=== PATIENT | female | born 1965 | race Caucasian/White ===

== ENCOUNTER 2017-10-15 21:05 | Observation (INO) ==
--- NOTE | 2017-10-15 21:28 | Emergency Department Note ---
Disposition Clinical Impression: Altered mental status Qualifiers: Altered mental status type: unspecified Qualified Code(s): R41.82 - Altered mental status, unspecified Disposition: Admitted As Inpatient Condition: Fair Referrals: Anders Sheikh MD [Primary Care Provider] - Forms: ED Satisfaction Letter Time of Disposition: 21:36 Altered Mental Status HPI - General Chief Complaint: ED Altered Mental Status Stated Complaint: confusion Time Seen by Provider: 10/15/17 21:26 Source: patient Limitations: altered mental status Nursing Notes Reviewed: Yes Vital Signs Reviewed: Yes - History of Present Illness HPI Narrative: 52-year-old female who was seen at an outside facility for confusion and altered mental status. The patient has been evaluated at [facility] in the past for possible strokes. She has had no fevers. The patient was sent for possible MRI. complaint: altered mental status, confusion Onset (ago): hour(s) Timing confirmed by: caregiver Consistency of Symptoms: waxing and waning Context: unknown Associated symptoms: Reports: denies other symptoms - Related Data Home Medications Medication Instructions Recorded Confirmed Aspirin Enteric Coated [Aspirin EC] 81 mg PO DAILY 02/20/15 02/20/15 Esomeprazole Magnesium [Nexium] 40 mg PO DAILY 02/20/15 02/20/15 Folic Acid [FA-8] 0.8 mg PO DAILY 02/20/15 02/20/15 Pregabalin [Lyrica] 150 mg PO TID 02/20/15 02/20/15 Rizatriptan Benzoate [Maxalt] 10 mg PO BID PRN 02/20/15 02/20/15 Simvastatin [Zocor] 40 mg PO DAILY 02/20/15 02/20/15 Previous Rx's Medication Instructions Recorded Oxybutynin [Ditropan] 5 mg PO TID PRN #50 tablet 09/10/15 Allergies Allergy/AdvReac Type Severity Reaction Status Date / Time ciprofloxacin Allergy Swelling Verified 05/13/17 16:37 of Lip/Tongue/Throat All systems ED: reviewed and negative except as stated. Constitutional: Denies: fever, chills, weakness, weight change Eyes: Denies: eye pain, eye discharge, vision change ENT ED: Denies: ear pain, throat pain, dental pain, hearing loss, epistaxis, congestion, dysphagia Cardiovascular: Denies: chest pain, palpitations, dyspnea on exertion, edema, syncope Respiratory: Denies: cough, dyspnea, wheezes, hemoptysis, stridor Gastrointestinal: Denies: abdominal pain, nausea, vomiting, diarrhea, constipation, hematemesis, melena, hematochezia Genitourinary: Denies: dysuria, frequency, hematuria, discharge Musculoskeletal: Denies: back pain, neck pain, arthralgia, myalgia Integumentary: Denies: rash, abrasion, lesions Neurological: Reports: confusion, other (Altered mental status). Denies: headache, weakness, numbness, paresthesias, abnormal gait, vertigo Psychiatric: Denies: anxiety, depression, suicidal thoughts, homicidal thoughts , auditory hallucinations, visual hallucinations Endocrine: Denies: fatigue Hematological/Lymphatic: Denies: easy bleeding, easy bruising Allergic/Immunologic: Denies: facial swelling, urticaria Past Medical History - Past Medical History Medical history: Reports: kidney stones, RA, TIA Surgical history: Reports: cholecystectomy, hysterectomy, knee replacement, DANAE/ BSO Psychiatric history: Reports: anxiety, depression GROCERY CASHIER history: Reports: no GROCERY CASHIER history - Social History Smoking Status: Never smoker Smokeless Tobacco Status: No Alcohol use: Reports: none Drug use: Reports: none Physical Exam - General Limitations: altered mental status General appearance: in no apparent distress - Head Head exam: atraumatic, normocephalic, normal inspection - Eye Eye exam: Present: normal appearance, PERRL, EOMI - ENT ENT exam: normal exam, normal oropharynx, mucous membranes moist - Neck Neck exam: Present: normal inspection, full ROM, trachea midline - Chest Chest inspection: Present: normal inspection, symmetric chest wall rise - Respiratory Respiratory exam: Present: normal lung sounds bilaterally - Cardiovascular Cardiovascular exam: Present: regular rate, normal rhythm, normal heart sounds - Abdominal Exam Abdominal exam: Present: soft, Non-Tender. Absent: tenderness, distention, guarding, rebound, rigidity - Extremities Exam Extremities exam: Present: normal inspection, full ROM. Absent: tenderness, pedal edema - Expanded Lower Extremity Exam Neurovascular/Tendon exam: Absent: motor deficit, sensory deficit, tendon deficit - Back Exam Back exam: Present: normal inspection, full ROM. Absent: tenderness - Neurological Exam Neurological exam: Present: alert, oriented X3 - Psychiatric Psychiatric exam: Present: normal affect, normal mood - Skin Skin exam: Present: warm, dry, intact, normal color Course - Reevaluation(s) Reevaluation #1: 52-year-old who comes from [facility] outside hospital with acute confusion. Workup there included negative CBC negative liver and ammonia levels. CT of the head was negative. Consultation with neurology they will see the patient in consult recommended admission to the hospitalist MRI MRA. Time: 21:34 - Consultations Consultation #1: Discussed with Dr. Matos, admit MRI Time: 21:32 Consultation #2: Discussed with , admit. Time: 21:52 Vital Signs Temperature 97.9 F 10/15/17 21:14 Pulse Rate 75 10/15/17 21:14 Respiratory Rate 18 10/15/17 21:14 Blood Pressure 121/71 10/15/17 21:14 O2 Sat by Pulse Oximetry 95 10/15/17 21:14 Temperature 97.9 F 10/15/17 21:14 Pulse Rate 75 10/15/17 21:14 Respiratory Rate 18 10/15/17 21:14 Blood Pressure 121/71 10/15/17 21:14 O2 Sat by Pulse Oximetry 95 10/15/17 21:14 Oxygen Delivery Oxygen Delivery Room Air TPA Checklist - LKW: 3-4.5 hrs Add. Warnings/Precautions Patient/family understanding: The patient/family members have been counseled and understood the risk, benefit , and alternatives of treatment.
[2017-10-15] MEDS ORDERED: Gadolinium Contrast Agent (WT Based) IV PRN (21:49)
[2017-10-15] MEDS ORDERED: Ondansetron 4 MG/2 ML VIAL IVP PRN (22:16)
[2017-10-15] MEDS ORDERED: Naloxone 0.4 MG/ML INJ IVP PRN (22:17)
[2017-10-15] MEDS ORDERED: Acetaminophen 325 MG TABLET PO PRN (22:17)
--- NOTE | 2017-10-15 22:21 | Internal Med History&Physical ---
Date of Encounter: 10/16/17 Time of Encounter: 22:18 Internal Medicine - H&P: HPI Chief complaint: Confusion Admitted From: Emergency Dept Plans for Post Hospital Care: Home History of present illness: Ms. Ugalde is a 52 year old female with history of migraines, TIAs, GERD who actually presented first to [facility] for confusion and was transferred to our ED for further evaluation before being admitted to us. The patient had presented to [facility] with complaints of sudden onset of confusion that started this morning. While talking to the patient in our ED she tells me that she woke up this morning as she was having a dream that she is going to [place] with her sister. She drove herself to her sister's workplace and asked her to go to [place] with her to see her uncle who actually lives there. Her sister's told her that she is not looking well and advised to go to the ED. The patient tells me that she has been feeling weak all day and is not able to hold onto things. While I was in the room I noted that the floor was wet and she told me that she could not hold her bottle of water and she ended up spilling the water on the floor. She tells me she has not been able to hold onto things all day. She was able to drive however. I started the patient up and walked her in the ER and she was able to walk however she was wobbly and took only small steps but she was able to hold her own. She had a workup at [facility] that including CT abdomen was unremarkable, EKG that was with no ST or T-wave changes, chest x-ray that showed cardiomegaly. Laboratory workup showed creatinine was 1.8 which is above her baseline and the rest of her labs were unremarkable including electrolytes. She had mildly elevated LFTs however those were elevated previously. The patient denies any other symptoms such as fever, chills, nausea , vomiting, headache, blurry vision, chest pain, shortness of breath, abdominal pain, urinary symptoms. Neurology were consulted in the ED and recommended admission for further neurological workup. Past Med Surg Social Fam HX - Past Medical History Medical history: kidney stones, RA, TIA Psychiatric history: anxiety, depression - Past Surgical History Surgical History: cholecystectomy, hysterectomy, knee replacement, DANAE/BSO - Social History Smoking Status: Never smoker Smokeless Tobacco Status: No Alcohol use: none Drug use: none Internal Medicine - H&P: Meds Aspirin Enteric Coated [Aspirin EC] 81 mg PO DAILY 02/20/15 [History] Simvastatin [Zocor] 40 mg PO DAILY 02/20/15 [History] Baclofen [Lioresal] 10 mg PO BID 10/15/17 [History] Duloxetine HCl [Cymbalta] 60 mg PO DAILY 10/15/17 [History] Famotidine [Pepcid] 40 mg PO DAILY 10/15/17 [History] Fluticasone Propionate Nasal [Flonase] 2 spr NS DAILY 10/15/17 [History] Metoprolol [Lopressor] 25 mg PO BID 10/15/17 [History] Montelukast [Singulair] 10 mg PO DAILY 10/15/17 [History] Pregabalin [Lyrica] 200 mg PO TID 10/15/17 [History] Promethazine [Phenergan] 25 mg PO Q6HR 10/15/17 [History] SUMAtriptan Succinate [Imitrex] 100 mg PO Q2H PRN 10/15/17 [History] Topiramate [Topamax] 50 mg PO BID 10/15/17 [History] Tramadol HCl [Ultram] 50 mg PO QID PRN 10/15/17 [History] clonazePAM [Klonopin] 1 mg PO BID 10/15/17 [History] 3 Allergy/AdvReac Type Severity Reaction Status Date / Time ciprofloxacin Allergy Swelling Verified 05/13/17 16:37 of Lip/Tongue/Throat All Systems PM: A 10-system review of systems was performed and is negative for pertinent findings except as documented above in the HPI. Review of systems: All systems reviewed are negative except as mentioned above - Constitutional Vitals: Temp Pulse Resp BP Pulse Ox 97.9 F 75 18 121/71 95 10/15/17 21:14 10/15/17 21:14 10/15/17 21:14 10/15/17 21:14 10/15/17 21:14 Exam: GEN: NAD, generally lethargic HEENT: AT, NC, No cyanosis, oral mucosa is moist, No JVD Lymphatics: No lymphadenoapthy Eyes: Extrocular muscles intact, anicteric CVS:RRR. S1, S2, No m/r/g RESP: CTAB ABD: Soft, NT, ND, +BS EXT: No edema, No rashes, 2+ DP NEURO: Patient is alert oriented [address] she thinks 2012. I stood her up and she was able to walk on although she took very small steps. She is weak in all extremities and so there are about 4 out of 5. No sensory deficits. Nonfocal, CN II-XII intact, Psych: Cooperative, Not anxious or depressed Internal Med - H&P Results - Labs CBC & Chem 7: 10/16/17 05:12 10/16/17 05:12 - Assessment and plan (1) Confusion Current Visit: Yes Status: Acute Assessment and plan: CT head was unremarkable and also facility. Patient's creatinine is mildly elevated above baseline. She may be a bit dehydrated. She is able to carry on a conversation and seems logical speech. Afebrile.. We will get the rest of the stroke workup including MRI of brain and MRA head/neck, and an echocardiogram. Patient is on aspirin. A statin may need to be added pending lipid profile. Neurology to see. check UA. (2) Weakness Current Visit: Yes Status: Acute Assessment and plan: Patient may be a bit dehydrated. She has elevated creatinine. We will gently hydrate and check labs in the morning. Check orthostatics. Check TSH. Check vitamin B12. PTOT. (3) MAGDALENA (acute kidney injury) Current Visit: Yes Status: Acute Assessment and plan: Patient seems a little bit dehydrated on exam. We will gently hydrate and avoid nephrotoxins. Labs in the morning. (4) GERD (gastroesophageal reflux disease) Current Visit: Yes Status: Acute Assessment and plan: Continue home PPI Qualifiers: Esophagitis presence: without esophagitis Qualified Code(s): K21.9 - Gastro -esophageal reflux disease without esophagitis (5) Migraine Current Visit: Yes Status: Acute Assessment and plan: Not have any headaches. Conservative management. Resume home meds. Qualifiers: Migraine type: without aura Status migrainosus presence: without status migrainosus Intractability: not intractable Qualified Code(s): G43.009 - Migraine without aura, not intractable, without status migrainosus (6) DVT prophylaxis Current Visit: Yes Status: Acute Assessment and plan: Heparin subcutaneous - Time Spent With Patient Total time spent is greater than 50% in coordination of care (as documented) at patient's floor/unit and/or counseling patient:
[2017-10-15] MEDS ORDERED: Aspirin 81 MG TAB.CHEW PO ONE (22:30)
[2017-10-16] MEDS: 0.9 % Sodium Chloride 1,000 ML IVC SCH ×2 (01:07→08:29)
[2017-10-16 05:24] LABS: Basophils # 0.1 K/mcL (0.0-0.2); Eosinophils # 0.4 K/mcL (0.0-0.6); Eosinophils % 5.6 %; Hematocrit 35.8 % (35.3-44.9); Immature Granulocytes % 0.1 % (0-4); Lymphocytes # 2.3 K/mcL (0.6-4.6); Mean Corpuscular HGB Conc 30.7 g/dL (31.6-35.5); Mean Corpuscular Volume 84.6 fL (83.0-100.0); Mean Platelet Volume 12.2 fL (9.4-12.4); Monocytes # 0.4 K/mcL (0.0-1.3); Monocytes % 6.2 %; Neutrophils # 3.9 K/mcL (1.6-8.9); Platelet Count 166 K/mcL (140-400); Red Blood Count 4.23 M/mcL (3.82-4.97); Red Cell Distribution Width 15.9 % (11.5-14.5); Segmented Neutrophils % 55.1 %
[2017-10-16 05:47] LABS: Alanine Aminotransferase 29 Units/L (7-52); Albumin 3.8 g/dL (3.5-5.7); Albumin/Globulin Ratio 1.2 (1.1-2.2); Alkaline Phosphatase 107 Units/L (34-104); Aspartate Amino Transferase 28 Units/L (13-39); BUN/Creatinine Ratio 21 (6-26); Bilirubin,Total 0.6 mg/dL (0.3-1.0); Blood Urea Nitrogen 24 mg/dL (6-20); Carbon Dioxide 22 mEq/L (23-29); Chloride 112 mEq/L (98-107); Chol/HDL Ratio 7.1 (0-4.9); Cholesterol 193 mg/dL (< 200); Globulin 3.3 g/dL (2.4-3.5); Glucose 193 mg/dL (70-105); HDL Cholesterol 27 mg/dL (40-59); LDL Cholesterol,Calculated 127 mg/dL (0-99); Magnesium 2.1 mg/dL (1.6-2.6); Osmolality,Calculated 303 (280-300); Potassium 3.8 mEq/L (3.5-5.1); Sodium 142 mEq/L (136-145); Total Protein 7.1 g/dL (6.4-8.9); Triglycerides 195 mg/dL (< 150); eGFR For African Americans > 60 (> 60); eGFR For Non-African Americans 51 (> 60)
[2017-10-16] MEDS: *HR* Heparin 5,000 UNIT/ML VIAL SQ SCH ×2 (06:38→13:40)
[2017-10-16] MEDS: Pregabalin 50 MG CAPSULE PO SCH ×2 (08:38→13:40)
[2017-10-16] MEDS ORDERED: clonazePAM 1 MG TABLET PO SCH (09:00)
[2017-10-16] MEDS ORDERED: Baclofen 10 MG TABLET PO SCH (09:00)
[2017-10-16] MEDS ORDERED: Aspirin Enteric Coated 81 MG Tablet PO SCH (09:00)
[2017-10-16] MEDS ORDERED: Topiramate 25 MG TABLET PO SCH (09:00)
[2017-10-16] MEDS ORDERED: Fluticasone Propionate Nasal 50 MCG/SPRAY BOTTLE NS SCH (09:00)
[2017-10-16] MEDS ORDERED: Famotidine 20 MG TABLET PO SCH (09:00)
--- NOTE | 2017-10-16 11:35 | Neurology - Consult Note ---
Date of Encounter: 10/16/17 Time of Encounter: 08:50 Assessment and Plan (1) Mental status change resolved Current Visit: Yes Status: Acute This patient who was admitted earlier with acute mental status changes that seems to have resolved now without any focal neurological deficit on her current neurological examination. Workup including, MRI of the brain as well as MRA of head and neck all has been negative. No evidence of any meningismus on exam and no evidence of any acute HAIRSPRING I INSPECTOR infection. Patient has not history of chronic migraines perhaps she could have a migrainous phenomena other possibility could be complex partial seizures without any convulsion. Regardless she is back to baseline and focal no focal motor deficit noted at this time. I suggest she check for any infectious etiology particularly check for any UTI pneumonia or any other vitamin infection. Would not recommend starting on any new medication from her neurology standpoint. Though we could do an EEG but do not think that will be helpful in the diagnosis as currently she is back to normal. If all workup is negative and patient remained stable she could be discharged to home with follow-up with neurology in 2-3 weeks (2) Chronic migraine without aura Current Visit: Yes Status: Acute Qualifiers: Status migrainosus presence: without status migrainosus Intractability: not intractable Qualified Code(s): G43.709 - Chronic migraine without aura, not intractable, without status migrainosus History of Present Illness HPI: Ms. Ugalde is a 52 year old female with history of TIAs, GERD presented to [facility] for confusion and was transferred to [place] for further evaluation, patient had presented to [facility] with complaints of sudden onset of confusion that started in the morning. She had a workup at [facility] that including CT head that was was unremarkable, EKG that was with no ST or T-wave changes, chest x-ray that showed cardiomegaly. Laboratory workup showed creatinine was 1.8 which is above her baseline. She had mildly elevated LFTs The patient denies any other symptoms such as fever, chills, nausea, vomiting , headache, blurry vision, chest pain, shortness of breath, abdominal pain, urinary symptoms. According to the patient the in the morning she had some confusion and she was not sure what was going on with her she has also noted some difficulty with her gait and balance and slightly wobbly she denies any difficulty with his speech and denies any focal motor weakness. Now she seems to be back to her baseline she denies any symptoms at this time she already had an MRI of the brain that did not show any acute abnormality Past Med Surg Social Fam HX - Past Medical History Medical history: kidney stones, RA, TIA Psychiatric history: anxiety, depression - Past Surgical History Surgical History: cholecystectomy, hysterectomy, knee replacement, DANAE/BSO - Social History Smoking Status: Never smoker Smokeless Tobacco Status: No Alcohol use: none Drug use: none Medications and Allergies Aspirin Enteric Coated [Aspirin EC] 81 mg PO DAILY 02/20/15 [History] Simvastatin [Zocor] 40 mg PO DAILY 02/20/15 [History] Baclofen [Lioresal] 10 mg PO BID 10/15/17 [History] Duloxetine HCl [Cymbalta] 60 mg PO DAILY 10/15/17 [History] Famotidine [Pepcid] 40 mg PO DAILY 10/15/17 [History] Fluticasone Propionate Nasal [Flonase] 2 spr NS DAILY 10/15/17 [History] Metoprolol [Lopressor] 25 mg PO BID 10/15/17 [History] Montelukast [Singulair] 10 mg PO DAILY 10/15/17 [History] Pregabalin [Lyrica] 200 mg PO TID 10/15/17 [History] Promethazine [Phenergan] 25 mg PO Q6HR 10/15/17 [History] SUMAtriptan Succinate [Imitrex] 100 mg PO Q2H PRN 10/15/17 [History] Topiramate [Topamax] 50 mg PO BID 10/15/17 [History] Tramadol HCl [Ultram] 50 mg PO QID PRN 10/15/17 [History] clonazePAM [Klonopin] 1 mg PO BID 10/15/17 [History] 3 Allergy/AdvReac Type Severity Reaction Status Date / Time ciprofloxacin Allergy Swelling Verified 05/13/17 16:37 of Lip/Tongue/Throat All Systems: The remainder of the systems were reviewed and are negative Physical Examination - Vital Signs Vital Signs: Initial Vital Signs Temp Pulse Resp BP Pulse Ox 97.9 F 75 18 121/71 95 10/15/17 21:14 10/15/17 21:14 10/15/17 21:14 10/15/17 21:14 10/15/17 21:14 - Exam Exam: GENERAL: Comfortable in no acute distress HEENT: Normal LUNGS: CTA HEART: RRR, S1 S2 Audible, no murmur EXTREMITIES: No Pedal edema. DETAILED NEUROLOGICAL EXAMINATION: MENTAL STATUS: Oriented to person, place, date and situation. Memory: knows the President, Aware of recent events Recent Memory Intact Cranial Nerve Examination: CN - II: Visual Acuity, Field of Vision Normal, Fundus examination: No disk edema, Pupils- size shape reaction to light and accommodation: All normal. CN III, IV, : External ocular movements were intact, Pupils were reactive, Nodrooping of the eyelids CN V: Sensation over the face to light touch and pinprick all normal. Corneal reflexes not tested, jaw jerk normal. CN VII: No facial asymmetry, no flattening of nasolabial folds, no difficulty in closing the eyes, no loss of forehead wrinkles, no difficulty in eye-closure, frowning raising eyebrows. CNVIII: No significant hearing loss CN IX, X: Uvula centralized not deviated, Gag reflex: Not tested CN X1: Sternocleidomastoid, trapezius, normal or evidence of any weakness. CN X11: No Dysarthria, no wasting or fibrilation f tongue muscles, no deviation, tongue muscle strength normal. Motor examination: No hypertrophy, tone was normal, power grade 0-5 Upper limbs Proximal- No difficulty in lifting the arms above the head. Distal- No weakness in distal muscles On formal testing 5/5 all over Lower limbs On formal testing 5/5 all over Coordination: [id number] normal. Target pursuit normal finger tapping normal, Rapid alternating moment of wrist normal Sensory system: Superficial sensations- Touch normal. Pain- Pinprick, Temperature all normal, Deep sensation normal, Joint position sense normal. Cortical sensation, Tactile discrimination, localization and extinction all normal. Deep tendon reflexes. Symmetrical bilateral, No evidence of Babinski. No sign of meningeal irritation Gait Examination: Deferred - Constitutional General appearance: comfortable Results - Laboratory Findings CBC and BMP: 10/16/17 05:12 10/16/17 05:12 Abnormal lab findings: Abnormal lab results Hgb 11.0 g/dL (11.5-15.4) L 10/16/17 05:12 MCH 26.0 pg (28.0-33.3) L 10/16/17 05:12 MCHC 30.7 g/dL (31.6-35.5) L 10/16/17 05:12 RDW 15.9 % (11.5-14.5) H 10/16/17 05:12 Chloride 112 mEq/L (98-107) H 10/16/17 05:12 Carbon Dioxide 22 mEq/L (23-29) L 10/16/17 05:12 BUN 24 mg/dL (6-20) H 10/16/17 05:12 Est GFR (Non-Af Amer) 51 (> 60) L 10/16/17 05:12 Glucose 193 mg/dL (70-105) H 10/16/17 05:12 Calculated Osmolality 303 (280-300) H 10/16/17 05:12 Alkaline Phosphatase 107 Units/L (34-104) H 10/16/17 05:12 Triglycerides 195 mg/dL (< 150) H 10/16/17 05:12 LDL Cholesterol, Calc 127 mg/dL (0-99) H 10/16/17 05:12 VLDL Cholesterol, Calc 39 mg/dL (< 31) H 10/16/17 05:12 HDL Cholesterol 27 mg/dL (40-59) L 10/16/17 05:12 Cholesterol/HDL Ratio 7.1 (0-4.9) H 10/16/17 05:12 - Diagnostic Findings Additional findings: MRI of the brain reported as negative as well as MRA of the head and neck. I am and B12 and TSH was also within normal limits Consult Discharge Plan - Plan Referrals: Anders Sheikh MD [Primary Care Provider] -
[2017-10-16 12:36] LABS: Bilirubin,Urine Negative (Negative); Blood,Urine Negative (Negative); Clarity,Urine Clear (Clear); Color,Urine Yellow (Yellow); Glucose,Urine (UA) Normal (Normal); Ketones,Urine Negative (Negative); Leukocyte Esterase,Urine Small (Negative); Nitrite,Urine Negative (Negative); Protein,Urine Negative (Neg-Trace); Specific Gravity,Urine 1.024 (1.010-1.025); Urobilinogen,Urine Normal (Normal)
[2017-10-16 12:39] LABS: Bacteria,Urine Few per hpf (None-Few); Hyaline Casts,Urine None Seen per lpf (None-Few); Squamous Epithelial Cell,Urine Many per lpf (None-Few)
[2017-10-16 12:49] LABS: Yeast,Urine Few per hpf (None Seen)
[2017-10-16 13:01] VITALS: BP 117/78
--- NOTE | 2017-10-16 16:18 | Discharge Summary ---
- NOTES TO OUTPATIENT PROVIDER Notes to Outpatient Provider: Patient to follow-up with urology in 2-3 weeks Date of Encounter: 10/16/17 Time of Encounter: 11:00 - Discharge Diagnosis (1) Confusion Priority: Primary Status: Acute (2) Weakness Priority: Secondary Status: Acute (3) MAGDALENA (acute kidney injury) Priority: Secondary Status: Acute (4) GERD (gastroesophageal reflux disease) Priority: Secondary Status: Acute Qualifiers: Esophagitis presence: without esophagitis Qualified Code(s): K21.9 - Gastro -esophageal reflux disease without esophagitis (5) Migraine Priority: Secondary Status: Acute Qualifiers: Migraine type: without aura Status migrainosus presence: without status migrainosus Intractability: not intractable Qualified Code(s): G43.009 - Migraine without aura, not intractable, without status migrainosus Hospital course: Patient is a 52-year-old female with past medical history significant for migraines, TIAs, GERD who presented from [facility] for confusion Patient was reported of having a sudden onset of confusion that started the morning of admission. Patient states that she woke up and had a dream that she was going to [place] with her sister. She drove herself to her sister's workplace and asked her to go to [place] with her to see her uncle who actually lives there. Her sister's told her that she is not looking well and advised to go to the ED. Patients workup at [facility] that included CT abdomen was unremarkable, EKG without ST or T-wave changes, chest x-ray that showed cardiomegaly. Laboratory workup showed creatinine was 1.8 which is above her baseline and the rest of her labs were unremarkable including electrolytes. She had mildly elevated LFTs however those were elevated previously. Neurology were consulted in the ED and recommended admission for further neurological workup. During patients hospital stay MRI of the brain/neck was done which showed no acute findings. Neurology was consulted with recommendations after reviewing imaging to have patient follow-up as an outpatient. Per domestic partner, patient is currently back to baseline mentation. Patient will be discharged to follow-up with neurology as an outpatient. - Time Spent with Patient Total time spent providing and/or coordinating discharge services: Less than 30 minutes - Discharge Medications Home Medications: Aspirin Enteric Coated [Aspirin EC] 81 mg PO DAILY 02/20/15 [History] Simvastatin [Zocor] 40 mg PO DAILY 02/20/15 [History] Baclofen [Lioresal] 10 mg PO BID 10/15/17 [History] Duloxetine HCl [Cymbalta] 60 mg PO DAILY 10/15/17 [History] Famotidine [Pepcid] 40 mg PO DAILY 10/15/17 [History] Fluticasone Propionate Nasal [Flonase] 2 spr NS DAILY 10/15/17 [History] Metoprolol [Lopressor] 25 mg PO BID 10/15/17 [History] Montelukast [Singulair] 10 mg PO DAILY 10/15/17 [History] Pregabalin [Lyrica] 200 mg PO TID 10/15/17 [History] Promethazine [Phenergan] 25 mg PO Q6HR 10/15/17 [History] SUMAtriptan Succinate [Imitrex] 100 mg PO Q2H PRN 10/15/17 [History] Topiramate [Topamax] 50 mg PO BID 10/15/17 [History] Tramadol HCl [Ultram] 50 mg PO QID PRN 10/15/17 [History] clonazePAM [Klonopin] 1 mg PO BID 10/15/17 [History] Allergies/Adverse Reactions: 3 Allergy/AdvReac Type Severity Reaction Status Date / Time ciprofloxacin Allergy Swelling Verified 05/13/17 16:37 of Lip/Tongue/Throat Date of admission: 10/15/17 22:47 Primary care physician: Anders Sheikh MD - Constitutional Vitals: Temp Pulse Resp BP Pulse Ox 98.0 F 72 16 117/78 96 10/16/17 12:59 10/16/17 12:59 10/16/17 12:59 10/16/17 12:59 10/16/17 12:59 - Respiratory Respiratory exam: Present: CTAB. Absent: accessory muscle use, rales, rhonchi, wheezes - Cardiovascular Cardiovascular exam: Present: RRR, +S1, +S2. Absent: diastolic murmur, gallop, rubs, systolic murmur - Patient Status Disposition: Home, Self-Care Condition: Fair - Discharge Instructions Follow Up With: Anders Sheikh MD [Primary Care Provider] -
[2017-10-19 09:21] LABS: Estimated Average Glucose 169 mg/dl; Hemoglobin A1C 7.5 %
== END 2017-10-16 17:35 | disposition home or self-care (01) ==
LOC: 2ANU 21:05 → EMEROO 21:05 → SUATTDRO 22:47 → 2ANU 23:28
PROVIDERS: ADMIT Internal Medicine; ATTEND Hospitalist